=== PATIENT | male | born 1955 | race Caucasian/White ===

== ENCOUNTER 2019-08-30 18:51 | Emergency (ER) | payer OTHER ==
[~2019-08-30] VITALS: Ht 175.3 cm; Wt 64.4 kg
[2019-08-30 19:03] VITALS: BP_SYST 125
--- NOTE | 2019-08-30 19:05 | NUR ---
Pt placed to ER bed 05. Pt sent from [facility] for medical clearance prior to transfer to [facility] r/t aggressive behavior and ~2cm laceration to posterior head s/p fall. No active bleeding from laceration. Pt alert, confused (per baseline), and irritable. VSS.
--- NOTE | 2019-08-30 19:10 | NUR ---
Dr. Garcia at bedside and laceration well approximated with 2 rick. No bleeding to site. Pt tolerated well.
--- NOTE | 2019-08-30 19:15 | NUR ---
Lab at bedside. Blood specimen collected from RAC. Pt tolerated well.
[2019-08-30 19:24] LABS: BASOPHILS # (AUTO) 0.1 K/uL (0.0-0.2); BASOPHILS % (AUTO) 0.7 % (0.0-2.0); EOSINOPHILS # (AUTO) 0.3 K/uL (0.0-0.4); EOSINOPHILS % (AUTO) 3.1 % (0.0-4.0); HEMATOCRIT 39.5 % (36-54); HEMOGLOBIN 12.7 g/dL (14.0-18.0); LYMPHOCYTES # (AUTO) 1.3 K/uL (1.0-5.5); LYMPHOCYTES % (AUTO) 16.6 % (20.5-51.5); MEAN CORPUSCULAR HEMOGLOBIN 30 pg (27-31); MEAN CORPUSCULAR HGB CONC 32 % (32-36); MEAN CORPUSCULAR VOLUME 93 fL (79.0-98.0); MONOCYTES # (AUTO) 0.6 K/uL (0.0-1.0); MONOCYTES % (AUTO) 7.9 % (1.7-9.3); NEUTROPHILS # (AUTO) 5.8 K/uL (1.8-7.7); NEUTROPHILS % (AUTO) 71.7 % (40.0-70.0); PLATELET COUNT (AUTO) 186 K/uL (130-430); RED BLOOD CELL COUNT(AUTO) 4.24 MIL/uL (4.2-6.2); RED CELL DISTRIBUTION WIDTH 15.5 % (9.0-15.0)
[2019-08-30 19:43] LABS: ANION GAP 8 (5-15); CALCIUM 8.4 mg/dL (8.4-11.0); CHLORIDE 106 mmol/L (98-107); CREATININE 1.11 mg/dL (0.55-1.30); GLUCOSE 137 mg/dL (70-99); POTASSIUM 3.7 mmol/L (3.5-5.1); SODIUM SERUM 143 mmol/L (136-145); UREA NITROGEN, BLOOD 20 mg/dL (8-21)
[2019-08-30 19:44] LABS: GFR AFRICAN AMERICAN 86 mL/min (>90)
[2019-08-30 19:48] LABS: ALANINE AMINOTRANSFERASE 28 U/L (12-78); ALBUMIN 3.3 g/dL (3.4-4.8); ASPARTATE AMINOTRANSFERASE 25 U/L (10-37); TOTAL BILIRUBIN 0.3 mg/dL (0.0-1.0)
[2019-08-30 19:49] LABS: CHOLESTEROL 150 mg/dL (<200); HDL CHOLESTEROL 38 mg/dL (>45); LDL CHOLESTEROL 91 mg/dL (<100); TRIGLYCERIDES 91 mg/dL (30-150)
[2019-08-30 19:51] LABS: ACETAMINOPHEN < 1 ug/mL (1-30); ALCOHOL, BLOOD < 3 mg/dL (<10)
--- NOTE | 2019-08-30 19:55 | NUR ---
Pt to CT via stretcher in stable condition.
--- NOTE | 2019-08-30 20:05 | NUR ---
Pt returns from CT. Unable to perform test r/t pt moving. Dr. Tuttle notified.
[2019-08-30] MEDS ORDERED: LORazepam 2 MG/ML VIAL IM ONE (20:15)
--- NOTE | 2019-08-30 20:40 | NUR ---
Pt to CT via stretcher.
--- NOTE | 2019-08-30 20:48 | NUR ---
Pt brought back to room. Unable to perform CT. Pt continues to move head. Dr. Tuttle notified. Pt to receive Ativan 1 mg IVP.
[2019-08-30] MEDS ORDERED: LORazepam 2 MG/ML VIAL IVP ONE (21:00)
--- NOTE | 2019-08-30 21:30 | NUR ---
Pt resting quietly with eyes closed, respirations even and non-labored. CT notified to reattempt scan.
--- NOTE | 2019-08-30 21:32 | NUR ---
Pt to CT via stretcher.
--- NOTE | 2019-08-30 21:38 | NUR ---
Pt begins moving head during CT attempt. Dr. Tuttle notified. VO to give Benadryl 25 mg IVP.
[2019-08-30] MEDS ORDERED: DIPHENHYDRAMINE INJ 50 MG/ML VIAL IVP ONE (21:45)
--- NOTE | 2019-08-30 21:45 | NUR ---
Benadryl 25 mg given SIVP to patent and secure PIV RAC.
--- NOTE | 2019-08-30 21:58 | NUR ---
CT successfully completed. Pt returned to room, resting quietly, even and non-labored respirations, NAD.
[2019-08-30] MEDS ORDERED: DIPHENHYDRAMINE INJ 50 MG/ML VIAL ONE (22:01)
--- NOTE | 2019-08-30 23:00 | NUR ---
Pt resting quietly, even and non-labored respirations, NAD. Pt report called to URVASHI Figueroa at [facility].
[2019-08-30 23:44] VITALS: BP_SYST 128
--- NOTE | 2019-08-30 23:44 | NUR ---
Patient to be transferred to [facility]. Is being transferred due to higher level of care. Receiving facility has accepting physician and available space. ER physician has signed transfer form. Patient or responsible democrat has agreed to transfer and signed form. Patient belongings inventoried and will be sent with patient. Copy of nursing notes, lab reports, EKG, Physicians Orders and X-rays to be sent with patient. Report called to URVASHI Figueroa at 2300 at receiving facility. Receiving physician is Dr. Daly/Dr. Plunkett. Pt leaves in stable condition via stretcher in [facility].
--- NOTE | 2019-08-30 23:44 | NUR ---
Pt W/C to accompany during transport.
== END 2019-08-30 23:44 ==
LOC: SED 18:51
DX: S00.03XA Contusion of scalp, initial encounter (principal); F20.9 Schizophrenia, unspecified; W06.XXXA Fall from bed, initial encounter; Y93.89 Activity, other specified; Y92.89 Other specified places as the place of occurrence of the external cause; Y99.8 Other external cause status
CPT/HCPCS: 36415; 70450; 80053; 80061; 80164; 83036; 85025; 87081; 96372; 96374; 96375; 99285; G0480; G0481; G0482; J1200; J2060

== ENCOUNTER 2020-01-16 18:17 | Emergency (ER) | payer OTHER, SELFPAY ==
[~2020-01-16] VITALS: Ht 157.5 cm; Wt 61.2 kg
[~2020-01-16 18:17] MED LIST: APIX5TAB4 PO; BENZTROPINE; CLON1TAB12 PO; DEPAK250 PO; DOCU-144 PO; FOLI-43 PO; METH2.5T PO; METO25TA3 PO; METO25TA6 PO; MOM PO; RIVASTIGMINE; SER25 PO; TAMS-11 PO; TRAZ-250 PO
[2020-01-16 18:22] VITALS: BP_SYST 107
--- NOTE | 2020-01-16 18:22 | NUR ---
Patient to ER bed 08 to gown for evaluation. Side rails up.
--- NOTE | 2020-01-16 18:30 | NUR ---
DR CUEVAS IN TO ASSESS
--- NOTE | 2020-01-16 18:51 | NUR ---
LABS, EKG, CXR COMPLETED
--- NOTE | 2020-01-16 18:51 | NUR ---
UNABLE TO OBTAIN URINE/MD AWARE
[2020-01-16 18:52] LABS: BASOPHILS % (AUTO) 0.8 % (0.0-2.0); EOSINOPHILS # (AUTO) 0.4 K/uL (0.0-0.4); EOSINOPHILS % (AUTO) 8.9 % (0.0-4.0); HEMATOCRIT 33.3 % (36-54); HEMOGLOBIN 10.7 g/dL (14.0-18.0); LYMPHOCYTES # (AUTO) 1.1 K/uL (1.0-5.5); LYMPHOCYTES % (AUTO) 21.7 % (20.5-51.5); MEAN CORPUSCULAR HEMOGLOBIN 28 pg (27-31); MEAN CORPUSCULAR HGB CONC 32 % (32-36); MEAN CORPUSCULAR VOLUME 87 fL (79.0-98.0); MONOCYTES # (AUTO) 0.4 K/uL (0.0-1.0); MONOCYTES % (AUTO) 8.8 % (1.7-9.3); NEUTROPHILS % (AUTO) 59.8 % (40.0-70.0); PLATELET COUNT (AUTO) 186 K/uL (130-430); RED BLOOD CELL COUNT(AUTO) 3.81 MIL/uL (4.2-6.2); RED CELL DISTRIBUTION WIDTH 16.3 % (9.0-15.0)
--- NOTE | 2020-01-16 18:52 | NUR ---
MEAL PROVIDED, TOLERATES PO WELL
[2020-01-16 19:03] LABS: ANION GAP 10 (5-15); CALCIUM 8.4 mg/dL (8.4-11.0); CHLORIDE 108 mmol/L (98-107); CREATININE 1.04 mg/dL (0.55-1.30); GLUCOSE 99 mg/dL (70-99); POTASSIUM 3.7 mmol/L (3.5-5.1); SODIUM SERUM 143 mmol/L (136-145); UREA NITROGEN, BLOOD 25 mg/dL (8-21)
[2020-01-16 19:06] LABS: GFR AFRICAN AMERICAN 93 mL/min (>90)
[2020-01-16 19:09] LABS: ALANINE AMINOTRANSFERASE 19 U/L (12-78); ALBUMIN 2.6 g/dL (3.4-4.8); ASPARTATE AMINOTRANSFERASE 21 U/L (10-37); TOTAL BILIRUBIN 0.2 mg/dL (0.0-1.0)
[2020-01-16 19:15] LABS: ACETAMINOPHEN < 1 ug/mL (1-30); ALCOHOL, BLOOD < 3 mg/dL (<10)
--- NOTE | 2020-01-16 19:30 | NUR ---
NO CHANGE IN MENTATION, PT SITTING UP WATCHING TV
--- NOTE | 2020-01-16 20:45 | NUR ---
REPORT GIVEN TO RN AT [facility]. MRSA OBTAINED
[2020-01-16 21:15] VITALS: BP_SYST 103
--- NOTE | 2020-01-16 21:17 | NUR ---
Patient to be transferred to [facility]. Is being transferred due to higher level of care. Receiving facility has accepting physician and available space. ER physician has signed transfer form. Patient or responsible green party has agreed to transfer and signed form. Patient belongings inventoried and will be sent with patient. Copy of nursing notes, lab reports, EKG, Physicians Orders and X-rays to be sent with patient. Report called to THERESE at receiving facility.
--- NOTE | 2020-01-18 17:52 | NUR ---
Called Kristy cortés to notify patient has MRSA result of Staphylococcus aureus- MRSA isolated, Dr Killian notified.
[2020-01-19] MEDS ORDERED: FOLI-43 PO (22:29)
[2020-01-19] MEDS ORDERED: ACET-2165 PO (22:29)
[2020-01-19] MEDS ORDERED: ASCO500T20 PO (22:29)
[2020-01-19] MEDS ORDERED: ZINC220T4 PO (22:29)
[2020-01-19] MEDS ORDERED: TAMS-11 PO (22:29)
[2020-01-19] MEDS ORDERED: RIVA1.5C7 PO (22:29)
[2020-01-19] MEDS ORDERED: IPRA3AMP9 INH (22:29)
[2020-01-19] MEDS ORDERED: QUET50TA PO (22:29)
[2020-01-19] MEDS ORDERED: LORA-258 PO (22:29)
[2020-01-19] MEDS ORDERED: TRAZ-219 PO (22:29)
[2020-01-19] MEDS ORDERED: Theragran M PO (22:29)
[2020-01-19] MEDS ORDERED: SER100 PO (22:29)
[2020-01-19] MEDS ORDERED: METO25TA3 PO (22:29)
[2020-01-19] MEDS ORDERED: METH2.5T PO (22:29)
[2020-01-19] MEDS ORDERED: ZOLP5TAB2 PO (22:29)
[2020-01-19] MEDS ORDERED: DIVA500T4 PO (22:29)
[2020-01-19] MEDS ORDERED: DIVA-74 PO (23:08)
== END 2020-01-16 21:17 ==
LOC: EEVIPCON 18:17 → SED 18:17
DX: F03.90 Unspecified dementia, unspecified severity, without behavioral disturbance, psychotic disturbance, mood disturbance, and anxiety (principal); F31.9 Bipolar disorder, unspecified; F20.9 Schizophrenia, unspecified; I10 Essential (primary) hypertension; Z79.899 Other long term (current) drug therapy
CPT/HCPCS: 36415; 71045; 80053; 84484; 85025; 85730; 87081; 87426; 93005; 99285; G0480; G0481; G0482